=== PATIENT | female | born 1985 | race Caucasian/White ===

== ENCOUNTER → 2017-09-15 10:36 | Outpatient (CLI) | payer MEDICAID, SELFPAY ==
--- NOTE | 2017-09-15 | MM_ITS ---
MM Dig mamm DX unilat LT CAD, US breast RT complete, US breast LT complete INDICATION: Bilateral breast pain ORDERING PHYSICIAN: Liam Yanes MD PATIENT AGE: 31 years COMPARISON: None TECHNIQUE: Bilateral breast ultrasound and left mammogram FINDINGS: Patient was originally scheduled for bilateral breast ultrasound. On the left breast ultrasound there was an area of decreased echogenicity in the 2:00 region therefore, mammogram was also performed of the left breast. Right breast ultrasound: No discrete mass. No solid or cystic lesions. There are scattered heterogeneous fibroglandular tissue. Small nodes present in the axilla. Left breast ultrasound: There was a persistent area of decreased echogenicity in the 2:00 region of the left breast corresponding to a palpable area. This measured 1 x 0.5 cm. This did appear to elongate on sagittal images haven't somewhat similar echogenicity to the remaining breast and is felt to represent fibroglandular tissue. No other significant anomalies are evident. Small nodes present in the axilla 1.7 cm's. Left mammogram: Average fibroglandular tissue. No discrete mass or malignant appearing microcalcification. There is some asymmetric density in the retroareolar region felt to be due to fibroglandular tissue. No sonographic correlate IMPRESSION: No suspicious findings. Probable asymmetric fibroglandular tissue in the 2:00 region of the left breast and in the retroareolar area. BI-RADS Category: 3 Benign Finding Short Term Follow-up RECOMMENDED FOLLOW-UP: 6M - 6 MONTH FOLLOW-UP Suggest follow-up left mammogram and ultrasound in 6 months (A letter has been sent to the patient regarding results of the study.)
== END ==
PROVIDERS: Family Provider Family Medicine Geriatric Medicine; PCP Family Medicine Geriatric Medicine; Visit Provider Nurse Practitioner Obstetrics & Gynecology
DX: N64.4 Mastodynia (principal); N63.20 Unspecified lump in the left breast, unspecified quadrant; N63.10 Unspecified lump in the right breast, unspecified quadrant
CPT/HCPCS: 76641; 77065

== ENCOUNTER → 2018-02-20 14:36 | Outpatient (CLI) | payer MEDICAID, SELFPAY ==
--- NOTE | 2018-02-20 14:37 | US_ITS ---
US transvaginal Ordering Physician: Liam Yanes MD Patient Age: 32 years: Female HISTORY: ITS.REASON: US T/V- RUQP, Ovarian Cyst Right-sided pain. Getting worse... Recent CT abdomen revealed ovarian cyst.. TECHNIQUE: Transvaginal pelvic ultrasound. MW. COMPARISON :A CT abdomen/pelvis 12/20/2017 demonstrated a large right ovary measuring nearly 6 cm FINDINGS UTERUS.. Normal size it measures 8.7 cm in length as 3.6 cm x 5.2 cm The endometrium appears thickened measuring 6 mm. . IUD is in place it appears satisfactory ultrasound survey.. scar noted lower anterior body of uterus. On today's study the left ovary is larger than right more prominent cyst.. The large cyst seen on 12/20/2017 CT appearance of regressed at the right ovary. . RIGHT OVARY measures 3.1 x 1.6 x 1.9 cm and contains numerous smaller follicles most of them measuring less than 7-8 mm; but there is a larger dominant follicle on right measuring up to 1.6 x 1.4 cm. LEFT OVARY 3.8 x 2.2 x 2.65 cm.. Upper normal size. . The largest cyst at the left ovary measures 1.7 x 1.6 cm. A smaller cyst adjacent to this measuring up 1.5 cm. X1.6 cm ------IMPRESSION-------- Left ovary is larger than right on today's study Left ovary multiple follicles with the largest cyst measuring 1.7 cm and another 1.6. At the right ovary the large cyst seen on the CT study from 12/20/2017 appear to have regressed. On today's study the right ovary contains numerous follicles with the largest measuring up to 1.7 cm . No fluid in cul-de-sac. Uterus appears normal in size. With IUD in place, scar noted.
== END ==
PROVIDERS: PCP Family Medicine; Visit Provider Nurse Practitioner Obstetrics & Gynecology
DX: R10.11 Right upper quadrant pain (principal); N83.209 Unspecified ovarian cyst, unspecified side
CPT/HCPCS: 76830

== ENCOUNTER → 2018-04-05 13:36 | Outpatient (CLI) | payer MEDICAID, SELFPAY ==
--- NOTE | 2018-04-05 | US_ITS ---
MM Dig mamm DX unilat LT CAD, US breast LT complete INDICATION: 6 month follow-up palpable left breast nodule ORDERING PHYSICIAN: Rafael Evans PATIENT AGE: 32 years COMPARISON: None TECHNIQUE: Standard images performed along spot compression view and left breast ultrasound FINDINGS: Average fibroglandular tissue. No malignant appearing mass or malignant appearing microcalcification. Scattered areas of asymmetric density are present in this retroareolar region and superior aspect of the left breast not significant change and appear to compress out as fibroglandular tissue. Left breast ultrasound: An 8 x 5 mm isoechoic area noted once again at 2:00 near the nipple and may represent fibroglandular tissue which appears to elongate as before. This appear somewhat less apparent compared to the previous exam. No malignant appearing mass. No cyst evident. Small nodes are present in the axilla. IMPRESSION: No significant change with no evidence of malignancy. Slightly hypoechoic the nodular area 2:00 is unchanged BI-RADS Category: 2 Benign Finding(s) RECOMMENDED FOLLOW-UP: 6M - 6 MONTH FOLLOW-UP (A letter has been sent to the patient regarding results of the study.)
== END ==
PROVIDERS: PCP Family Medicine; Visit Provider Family Medicine
DX: R92.8 Other abnormal and inconclusive findings on diagnostic imaging of breast (principal)
CPT/HCPCS: 76641; 77065

== ENCOUNTER → 2019-01-01 13:04 | Outpatient (CLI) | payer MEDICAID, SELFPAY ==
--- NOTE | 2019-01-01 13:07 | US_ITS ---
PROCEDURE: MM DIG MAMM DX UNILAT LT CAD CLINICAL INDICATION: Dx Mammogram- 6 mo f/u abnormal mamm COMPARISON: DXLT MM Dig mamm DX unilat LT CAD from 09/15/2017 BREASTLT US breast LT complete from 04/05/2018 DXLT MM Dig mamm DX unilat LT CAD from 04/05/2018 US BREAST LT COMPLETE from 01/01/2019 TECHNIQUE: Standard CC and MLO images were obtained. R2 CAD reviewed. FINDINGS: Average fibroglandular tissue. No discrete mass or malignant-appearing microcalcification. A marker is placed to denote in area of palpable concern. No mammographic abnormality evident in this region within the upper outer left breast. There is some increase in glandular in the retroareolar region compared to the previous exams. Left breast ultrasound: No discrete mass or cyst evident. Oval area isoechoic area once again noted at 2 o'clock unchanged and felt to be due to fibroglandular tissue. IMPRESSION: No evidence of malignancy. No change in the isoechoic region in the 2 o'clock area of the left breast. There increase in glandular tissue noted in the retroareolar region but no mass evident in this area on the ultrasound. BI-RAD Category: 2 Benign Finding(s) FOLLOW-UP: As clinically indicated Any palpable nodule should be managed on clinical basis. Negative mammogram and negative ultrasound does not exclude the possibility of malignancy. (A letter has been sent to the patient regarding results of the study.) Dictated by: Romario Bell MD 01/08/2019 12:27 Electronically signed by Romario Bell MD in [place] 01/08/2019 12:27
== END ==
PROVIDERS: Visit Provider Nurse Practitioner Obstetrics & Gynecology
DX: R92.8 Other abnormal and inconclusive findings on diagnostic imaging of breast (principal)
CPT/HCPCS: 76641; 77065

== ENCOUNTER → 2020-11-06 16:11 | Outpatient (CLI) | payer MEDICAID, SELFPAY ==
[2020-11-06 19:34] LABS: HCG,Quantitative < 2 mIU/ml (0-5.42)
== END ==
PROVIDERS: Visit Provider Nurse Practitioner Obstetrics & Gynecology
DX: N92.6 Irregular menstruation, unspecified (principal)
CPT/HCPCS: 36415; 84702

== ENCOUNTER → 2021-09-23 11:01 | Outpatient (CLI) | payer MEDICAID, SELFPAY ==
--- NOTE | 2021-09-23 12:25 | US_ITS ---
FINAL REPORT CLINICAL HISTORY: dates FINDINGS: Sonographic images of the pelvis were obtained. A gestational sac is present within the uterus. A yolk sac is present and measures 0.25 cm. A pole is identified with a crown to rump length measures 0.36 cm which corresponds to 6 weeks 1 day gestation. Heartbeat is not identified. There is a 1.4 cm right ovarian cyst. The left ovary is within normal limits. IMPRESSION: No heartbeat is identified which may represent early , too early to visualize heartbeat versus failed . Recommend follow-up Reviewed, Interpreted and Dictated by Mannie Caban III, MD Transcribed by Asimta Faria Authenticated and . [facility]
[2021-09-23 13:30] LABS: Basophils # 0.1 K/mm3 (0-0.2); Basophils % 1.6 % (0.1-2.0); Eosinophils # 0.1 K/mm3 (0.0-0.4); Eosinophils % 1.1 % (0.1-12.0); Hemoglobin 14.2 g/dL (12.2-16.2); Lymphocytes # 1.3 K/mm3 (0.7-4.5); Lymphocytes % 21.8 % (10-50); Mean Corpuscular Hemoglobin 32.5 pg (27.0-31.2); Mean Corpuscular Volume 98.5 fl (81-99); Mean Platelet Volume 8.5 fl (7.4-10.4); Monocytes # 0.3 K/mm3 (0.1-1.0); Monocytes % 5.7 % (1.7-9.3); Neutrophils # 4.2 K/mm3 (1.8-7.8); Neutrophils % 69.7 % (37.0-80.0); Platelet Count 222 K/mm3 (142-424); Red Blood Count 4.36 M/mm3 (4.20-5.40); Red Cell Distribution Width 13.5 % (11.5-17.5)
[2021-09-23 14:07] LABS: HCG,Quantitative 1348 mIU/ml (0-5.42)
[2021-09-24 07:12] LABS: HIV Screen 4th Generation wRfx Non Reactive (Non Reactive); Hepatitis B Surface Antigen Negative (Negative); Hepatitis C Antibody <0.1 s/co ratio (0.0-0.9)
[2021-09-24 11:12] LABS: Rapid Plasma Reagin Ab Titer Non Reactive (NonRea<1:1)
== END ==
PROVIDERS: PCP Nurse Practitioner Family; Visit Provider Nurse Practitioner Obstetrics & Gynecology
DX: Z34.90 Encounter for supervision of normal pregnancy, unspecified, unspecified trimester (principal)
CPT/HCPCS: 36415; 76801; 84702; 85025; 86592; 86703; 86762; 86850; 87340; 87380; G0432

== ENCOUNTER → 2021-09-25 11:38 | Outpatient (CLI) | payer MEDICAID, SELFPAY ==
[2021-09-25 13:24] LABS: HCG,Quantitative 1086 mIU/ml (0-5.42)
== END ==
PROVIDERS: PCP Nurse Practitioner Family; Visit Provider Nurse Practitioner Obstetrics & Gynecology
DX: Z34.90 Encounter for supervision of normal pregnancy, unspecified, unspecified trimester (principal)
CPT/HCPCS: 36415; 84702

== ENCOUNTER → 2021-09-28 14:05 | Outpatient (CLI) | payer MEDICAID, SELFPAY ==
--- NOTE | 2021-09-28 14:06 | US_ITS ---
FINAL REPORT CLINICAL HISTORY: confirm if viable FINDINGS: PELVIC ULTRASOUND No gestational sac is identified. The uterus measures 8.1 x 4.5 x 3.3 cm. The endometrium measures 4 mm. The right ovary measures 2.6 x 2.2 x 1.8 cm. The left ovary measures 2.6 x 1.7 x 1.6 cm. Blood flow is identified to the ovaries. No free fluid is identified. IMPRESSION: No gestational sac identified. Findings may represent failed or less likely normal early . If indicated, follow-up ultrasound. Reviewed, Interpreted and Dictated by Mannie Caban III, MD Transcribed by Ryan Daniel Authenticated and [facility]
== END ==
PROVIDERS: PCP Nurse Practitioner Family; Visit Provider Nurse Practitioner Obstetrics & Gynecology
DX: Z34.90 Encounter for supervision of normal pregnancy, unspecified, unspecified trimester (principal)
CPT/HCPCS: 76801

== ENCOUNTER → 2022-05-13 13:34 | Outpatient (CLI) | payer MEDICAID, SELFPAY ==
[2022-05-13 15:52] LABS: HCG,Quantitative < 2 mIU/ml (0-5.42)
[2022-05-15 08:20] LABS: Progesterone 0.6 ng/mL (.)
== END ==
PROVIDERS: PCP Nurse Practitioner Family; Visit Provider Nurse Practitioner Obstetrics & Gynecology
DX: N92.6 Irregular menstruation, unspecified (principal); Z32.00 Encounter for pregnancy test, result unknown
CPT/HCPCS: 36415; 84144; 84702

== ENCOUNTER 2024-09-25 16:05 | Outpatient (CLI) | payer MEDICAID, SELFPAY ==
--- NOTE | 2024-09-25 16:00 | US_ITS ---
PROCEDURE: US TRANSVAGINAL CLINICAL INDICATION: Needs for IUD placement check/pelvic pain COMPARISON: No exams were available for comparison FINDINGS: Transvaginal sonographic images of the pelvis were obtained. UTERUS: 8.0cm x 4.8 cmx 3.8 cm anteverted with a combined endometrial thickness of 4.9mm. There is an IUD within the uterine cavity in the correct position. LEFT OVARY: 2.6 cmx1.3cmx1.3cm with a volume of 2.3ml. RIGHT OVARY: 0.8 cmx 1.4cmx1.6 cm with a volume of 3.2ml. Both ovaries are seen and appear normal. Doppler flow to both ovaries are seen. There is no fluid in the cul-de-sac. IMPRESSION: 1. Anteverted uterus normal in shape and size. The endometrium is thin measuring 4.9 mm. 2. There is an IUD within the uterine cavity in the correct position. 3. Both ovaries are seen and appear normal. 4. No fluid in the cul-de-sac. Dictated by: Liam Yanes MD 09/26/2024 01:34 Liam Yanes MD in [place] 09/26/2024 01:34
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
--- OUTSIDE RECORDS SUMMARY | 2024-09-25 16:08 | XMS_ITS | Data Portability ---
Author Organization [facility] ADMIN Address [address] [place] [address] Care Team Providers Care Automation Analyst Name Role Phone ANGELAGIULIANACatrachito RADHA Primary Care Provider Assessment Encounter Date Assessment Date Assessment LastModified by Organization Details LastModified Time 11/22/2023 11/22/2023 Additional Notes : Weigh-Ins Needed: 1/month until surgery or at least 3; will complete with KBI Recommendations: 1. Follow 2-4 hr rule for meal timing 2. 64 oz noncarbonated, noncaffeinated, sugar-free fluids/day 3. Continue physical activity to 4x/week 4. Begin using tracking nikolay to assess avg diet intake, track daily intake 4+ times/week A total of 22 minutes was spent with the pt today. RDN concludes that pt is a suitable candidate for sx at this time. Reservations include none at this time. Pt verbally agreed to recommendations and goals. Denied further questions/concerns . RDN will monitor weight loss, labs, and lifestyle modifications. Will f/up as scheduled or PRN. [email or web address] Not available 11/22/2023 16:45:38 Plan of Treatment Reminders Order Date Submit Date Provider Last Modified By Organization Details Last Modified Time Details Appointments None recorded. Lab influenza virus A + B + SARS-CoV-2 (COVID19) Ag panel, rapid IA, upper respiratory specimen [address] [facility], [address] [place], [address], 15:57:05 Referral None recorded. Procedures None recorded. Surgeries None recorded. Imaging None recorded. Medication Orders Qsymia 7.5 mg-46 mg capsule, extended release 2024 025 [facility], [address] [place] [address], [address], [place], [address], 13:14:25 Qsymia 3.75 mg-23 mg capsule, extended release 2024 025 [facility] #[id number], [address], [id number], 15:19:55 Qsymia 7.5 mg-46 mg capsule, extended release 2024 025 [facility] #[id number], [address] [place], [id number], 15:54:12 Paxlovid 300 mg (150 mg x 2)-100 mg tablets in a dose pack 2023 024 [facility] #[id number], [address], [id number], 15:43:35 Patient TargetsNo targets recorded. Patient InstructionsNo instructions recorded. Reason for Referral None Reported. Results Created Date Observation Date Name Description Value Unit Range Abnormal Flag Note LastModifiedBy Organization Detail LastModifiedTime 10/31/1910/31/2023 CBC AUTO W DIFF WBC 5.5 10 4.5-11 .5 Not Available [facility] (Lab Registration) [address] [place], [address], 10/31/2023 13:23:34 10/31/19 24 10/31/2023 CBC AUTO W DIFF RBC 4.25 10 4.25-5 .57 Not Available [facility] (Lab Registration) [address] [place], [address], 10/31/2023 13:23:34 10/31/19 24 10/31/2023 CBC AUTO W DIFF HGB 13.8 g/dL 12.0-1 5.7 Not Available [facility] (Lab Registration) [address] [place], [address], 10/31/2023 13:23:34 10/31/19 24 10/31/2023 CBC AUTO W DIFF HCT 39.7 % 36.0-4 7.0 Not Available [facility] (Lab Registration) [address] [place], [address], 10/31/2023 13:23:34 10/31/19 24 10/31/2023 CBC AUTO W DIFF MCV 93.4 fL 80-95 Not Available [facility] (Lab Registration) [address] [place], [address], 10/31/2023 13:23:34 10/31/19 24 10/31/2023 CBC AUTO W DIFF MCH 32.5 pg 27.0-3 4.0 Not Available [facility] (Lab Registration) [address] [place], [address], 10/31/2023 13:23:34 10/31/19 24 10/31/2023 CBC AUTO W DIFF MCHC 34.8 g/dL 32.0-3 6.0 Not Available [facility] (Lab Registration) [address] [place], [address], 10/31/2023 13:23:34 10/31/19 24 10/31/2023 CBC AUTO W DIFF platelet count 216 10 150-45 0 Not Available [facility] (Lab Registration) [address] [place], [address], 10/31/2023 13:23:34 10/31/19 24 10/31/2023 CBC AUTO W DIFF RDW 11.9 % 12.3-1 5.1 low Not Available [facility] (Lab Registration) [address] [place], [address], 10/31/2023 13:23:34 10/31/19 24 10/31/2023 CBC AUTO W DIFF MPV 10.8 fL 7.4-10 .4 high Not Available [facility] (Lab Registration) [address] [place], [address], 10/31/2023 13:23:34 10/31/19 24 10/31/2023 CBC AUTO W DIFF granulocyte% 53.1 % 40-75 Not Available [facility] (Lab Registration) [address] [place], [address], 10/31/2023 13:23:34 10/31/19 24 10/31/2023 CBC AUTO W DIFF lymphocyte% 36.5 % 15-57 Not Available [facility] (Lab Registration) [address] [place], [address], 10/31/2023 13:23:34 10/31/19 24 10/31/2023 CBC AUTO W DIFF monocyte% 8.6 % 4.0-12 .0 Not Available [facility] (Lab Registration) [address] [place], [address], 10/31/2023 13:23:34 10/31/19 24 10/31/2023 CBC AUTO W DIFF eosinophil% 0.7 % 0.0-4. 0 Not Available [facility] (Lab Registration) [address] [place], [address], 10/31/2023 13:23:34 10/31/19 24 10/31/2023 CBC AUTO W DIFF basophil% 1.1 % 0.0-1. 0 high Not Available [facility] (Lab Registration) [address] [place], [address], 10/31/2023 13:23:34 10/31/19 24 10/31/2023 CBC AUTO W DIFF immature granulocytes % 0.0 % 0.0-0. 8 Not Available [facility] (Lab Registration) [address] [place], [address], 10/31/2023 13:23:34 10/31/19 24 10/31/2023 CBC AUTO W DIFF granulocyte# 2.89 10 Not Available [facility] (Lab Registration) [address], [place], [address], 10/31/2023 13:23:34 10/31/19 24 10/31/2023 CBC AUTO W DIFF lymphocyte# 1.99 10 Not Available [facility] (Lab Registration) [address] [place], [address], 10/31/2023 13:23:34 10/31/19 24 10/31/2023 CBC AUTO W DIFF monocyte# 0.47 10 Not Available [facility] (Lab Registration) [address] [place], [address], 10/31/2023 13:23:34 10/31/19 24 10/31/2023 CBC AUTO W DIFF eosinophil# 0.04 10 Not Available [facility] (Lab Registration) [address] [place], [address], 10/31/2023 13:23:34 10/31/19 24 10/31/2023 CBC AUTO W DIFF basophil# 0.06 10 Not Available [facility] (Lab Registration) [address] [place], [address], 10/31/2023 13:23:34 10/31/19 24 10/31/2023 CBC AUTO W DIFF immature granulocytes # 0.00 10 Not Available [facility] (Lab Registration) [address] [place], [address], 10/31/2023 13:23:34 10/31/19 24 10/31/2023 CBC AUTO W DIFF manual differential NO Not Available [facility] (Lab Registration) [address] [place], [address], 10/31/2023 13:23:34 10/31/19 24 10/31/2023 CBC AUTO W DIFF note Unles s other ca noted testi ng perfo rmed at: [facility] [address] [place] [address] [phone] Esdras sewell MD CLIA: [id number] Not Available [facility] (Lab Registration) [address] [place], [address], 10/31/2023 13:23:34 10/31/19 24 10/31/2023 HEMOG LOBIN A1C glycosylated hemoglobin A1C 5.3 % 4.5-6. 2 Not Available [facility] (Lab Registration) [address] [place], [address], 10/31/2023 13:31:14 10/31/19 24 10/31/2023 HEMOG LOBIN A1C estimated average glucose 105 mg/dL 82-131 Not Available [facility] (Lab Registration) [address] [place], [address], 10/31/2023 13:31:14 10/31/19 24 10/31/2023 HEMOG LOBIN A1C note Unles s other ca noted testi ng perfo rmed at: [facility] [address] [place] [address] [phone] Esdras sewell MD CLIA: [id number] Not Available [facility] (Lab Registration) [address] [place], [address], 10/31/2023 13:31:14 10/31/19 24 10/31/2023 IRON/ TIBC/ %SAT (IRON STUDI ES) iron 96 ug/dL 35-150 Not Available [facility] (Lab Registration) [address] [place], [address], 10/31/2023 13:44:44 10/31/19 24 10/31/2023 IRON/ TIBC/ %SAT (IRON STUDI ES) total iron bind cap (TIBC) 299 ug/dL 250-45 0 Not Available [facility] (Lab Registration) [address] [place], [address], 10/31/2023 13:44:44 10/31/19 24 10/31/2023 IRON/ TIBC/ %SAT (IRON STUDI ES) % saturation 32 % 15-55 Not Available [facility] (Lab Registration) [address], [place], [address], 10/31/2023 13:44:44 10/31/19 24 10/31/2023 IRON/ TIBC/ %SAT (IRON STUDI ES) note Unles s other ca noted testi ng perfo rmed at: [facility] [address] [place] [phone] Esdras sewell MD CLIA: [id number] Not Available [facility] (Lab Registration) [address] [place], [address], 10/31/2023 13:44:44 10/31/19 24 10/31/2023 THYRO ID STIMU LATIN G HORMO NE thyroid stimulating hormone 1.84 mIU/m L 0.34-4 .80 Not Available [facility] (Lab Registration) [address] [place], [address], 10/31/2023 14:15:00 10/31/19 24 10/31/2023 THYRO ID STIMU LATIN G HORMO NE note Cecilio sewell other ca noted testi ng perfo rmed at: [facility] [address] [place] [phone] Esdras sewell MD CLIA: [id number] Not Available [facility] (Lab Registration) [address] [place], [address], 10/31/2023 14:15:00 10/31/19 24 10/31/2023 VITAM IN D TOTAL (D2+D 3) vitamin D25 (D2+D3) 43.5 NG/mL 30-100 Not Available [facility] (Lab Registration) [address] [place], [address], 10/31/2023 14:15:03 10/31/19 24 10/31/2023 VITAM IN D TOTAL (D2+D 3) note Unles s other ca noted testi ng perfo rmed at: [facility] [address] [place] [address] [phone] Esdras sewell MD CLIA: [id number] Not Available [facility] (Lab Registration) [address] [place], [address], 10/31/2023 14:15:03 10/31/19 24 10/31/2023 VITAM IN B12 vitamin B12 614 pg/mL 193-98 6 Not Available [facility] (Lab Registration) [address] [place], [address], 10/31/2023 14:15:04 10/31/19 24 10/31/2023 VITAM IN B12 folate (folic acid), serum 19.2 NG/mL 8.6-58 .9 Not Available [facility] (Lab Registration) [address] [place], [address], 10/31/2023 14:15:04 10/31/19 24 10/31/2023 VITAM IN B12 note Unles s other ca noted testi ng perfo rmed at: [facility] [address] [place] [address] [phone] Esdras sewell MD CLIA: [id number] Not Available [facility] (Lab Registration) [address] [place], [address], 10/31/2023 14:15:04 10/31/19 24 10/31/2023 COMP METAB OLIC PANEL sodium 141 mmol/ L 136-14 5 Not Available [facility] (Lab Registration) [address] [place], [address], 10/31/2023 14:15:04 10/31/19 24 10/31/2023 COMP METAB OLIC PANEL potassium 3.9 mmol/ L 3.5-5. 1 Not Available [facility] (Lab Registration) [address] [place], [address], 10/31/2023 14:15:04 10/31/19 24 10/31/2023 COMP METAB OLIC PANEL chloride 104 mmol/ L 98-107 Not Available [facility] (Lab Registration) [address] [place], [address], 10/31/2023 14:15:04 10/31/19 24 10/31/2023 COMP METAB OLIC PANEL carbon dioxide 28 mmol/ L 21-32 Not Available [facility] (Lab Registration) [address] [place], [address], 10/31/2023 14:15:04 10/31/19 24 10/31/2023 COMP METAB OLIC PANEL anion gap 9.0 Not Available [facility] (Lab Registration) [address] [place], [address], 10/31/2023 14:15:04 10/31/19 24 10/31/2023 COMP METAB OLIC PANEL glucose 95 mg/dL 70-110 Not Available [facility] (Lab Registration) [address] [place], [address], 10/31/2023 14:15:04 10/31/19 24 10/31/2023 COMP METAB OLIC PANEL blood urea nitrogen 10 mg/dL 7-18 Not Available [facility] (Lab Registration) [address] [place], [address], 10/31/2023 14:15:04 10/31/19 24 10/31/2023 COMP METAB OLIC PANEL creatinine 0.7 mg/dL 0.6-1. 0 Not Available [facility] (Lab Registration) [address] [place], [address], 10/31/2023 14:15:04 10/31/19 24 10/31/2023 COMP METAB OLIC PANEL BUN/creatini ne ratio 14.3 ratio 9-21 Not Available [facility] (Lab Registration) [address] [place], [address], 10/31/2023 14:15:04 10/31/19 24 10/31/2023 COMP METAB OLIC PANEL estimated glom filtration rate 112 mL/mi n >60- Not Available [facility] (Lab Registration) [address] [place], [address], 10/31/2023 14:15:04 10/31/19 24 10/31/2023 COMP METAB OLIC PANEL total protein 7.0 g/dL 6.4-8. 2 Not Available [facility] (Lab Registration) [address] [place], [address], 10/31/2023 14:15:04 10/31/19 24 10/31/2023 COMP METAB OLIC PANEL albumin 4.1 g/dL 3.4-5. 0 Not Available [facility] (Lab Registration) [address] [place], [address], 10/31/2023 14:15:04 10/31/19 24 10/31/2023 COMP METAB OLIC PANEL calcium 9.7 mg/dL 8.5-10 .1 Not Available [facility] (Lab Registration) [address] [place], [address], 10/31/2023 14:15:04 10/31/19 24 10/31/2023 COMP METAB OLIC PANEL corrected calcium 9.6 mg/dL 8.5-10 .1 Not Available [facility] (Lab Registration) [address] [place], [address], 10/31/2023 14:15:04 10/31/19 24 10/31/2023 COMP METAB OLIC PANEL bilirubin total 0.9 mg/dL 0.4-1. 5 Not Available [facility] (Lab Registration) [address] [place], [address], 10/31/2023 14:15:04 10/31/19 24 10/31/2023 COMP METAB OLIC PANEL AST (SGOT) 18 U/L 15-37 Not Available [facility] (Lab Registration) [address] [place], [address], 10/31/2023 14:15:04 10/31/19 24 10/31/2023 COMP METAB OLIC PANEL ALT (SGPT) 25 U/L 12-78 Not Available [facility] (Lab Registration) [address] [place], [address], 10/31/2023 14:15:04 10/31/19 24 10/31/2023 COMP METAB OLIC PANEL alk phosphatase 83 U/L 50-120 Not Available [facility] (Lab Registration) [address] [place], [address], 10/31/2023 14:15:04 10/31/19 24 10/31/2023 COMP METAB OLIC PANEL note Unles s other ca noted testi ng perfo rmed at: [facility] [address] [place] [address] [phone] Esdras sewell MD CLIA: [id number] Not Available [facility] (Lab Registration) [address] [place], [address], 10/31/2023 14:15:04 10/31/19 24 10/31/2023 LIPID PANEL triglyceride 31 mg/dL 20-200 The Natio nal [employer] ([employer] ) has set the follo wing guide lines for Fasti ng Trigl yceri adriel: THOMAS L: <150 mg/dL BORDE RLINE HIGH: 150 - 199 mg/dL HIGH: 200 - 499 mg/dL VERY HIGH: > or =500 mg/dL Not Available [facility] (Lab Registration) [address] [place], [address], 10/31/2023 14:15:06 10/31/19 24 10/31/2023 LIPID PANEL cholesterol 199 mg/dL 0-200 The Natio nal [employer] am ([facility] ) has set the follo wing guide lines for Fasti ng Kavya stero l: LALA ABLE: <200 mg/dL BORDE RLINE HIGH: 200 - 239 mg/dL HIGH: > or =240 mg/dL Not Available [facility] (Lab Registration) [address] [place], [address], 10/31/2023 14:15:06 10/31/19 24 10/31/2023 LIPID PANEL HDL cholesterol 69 mg/dL 60- The Natio nal [employer] ([facility] ) has set the follo wing guide lines for Fasti ng HDL Kavya stero l: LOW HDL: <40 mg/dL THOMAS L: 40 - 60 mg/dL LALA ABLE: >60 mg/dL Not Available [facility] (Lab Registration) [address] [place], [address], 10/31/2023 14:15:06 10/31/19 24 10/31/2023 LIPID PANEL LDL calculated 124 mg/dL 100- The Natio nal [employer] ([facility] ) has set the follo wing guide lines for Fasti ng LDL K[employer]ya stero l: OPTIM AL: < 100 mg/dL LOW RISK: 100 - 129 mg/dL BORDE RLINE HIGH: 130 - 159 mg/dL HIGH: 160 - 189 mg/dL VERY HIGH: > or = 190 mg/dL Not Available [facility] (Lab Registration) [address] [place], [address], 10/31/2023 14:15:06 10/31/19 24 10/31/2023 LIPID PANEL chol/HDL ratio 3 ratio -5 Not Available [facility] (Lab Registration) [address] [place], [address], 10/31/2023 14:15:06 10/31/19 24 10/31/2023 LIPID PANEL note Unles s other ca noted testi ng perfo rmed at: [facility] [address] [place] [address] [phone] Esdras sewell MD CLIA: [id number] Not Available [facility] (Lab Registration) [address] [place], [address], 10/31/2023 14:15:06 10/31/19 24 10/31/2023 VLADISLAV TIN ferritin 38 NG/mL 8-388 Not Available [facility] (Lab Registration) [address] [place], [address], 10/31/2023 14:15:08 10/31/19 24 10/31/2023 VLADISLAV TIN note Cecilio nicholas ca noted testi ng perfo rmed at: [facility] [address] [place] [address] [phone] Esdras sewell MD CLIA: [id number] Not Available [facility] (Lab Registration) [address] [place], [address], 10/31/2023 14:15:08 10/31/19 24 10/31/2023 urina lysis , dipst ick Leukocytes (reference range) negati ve Not Available [address] [place], [address], 10/31/2023 12:13:57 10/31/19 24 10/31/2023 urina lysis , dipst ick Nitrite (reference range:) negati ve Not Available [address] [place], [address], 10/31/2023 12:13:57 10/31/19 24 10/31/2023 urina lysis , dipst ick Urobilinogen (reference range) 0.2 Not Available [address] [place], [address], 10/31/2023 12:13:57 10/31/19 24 10/31/2023 urina lysis , dipst ick Protein (reference range) negati ve Not Available [address] [place], [address], 10/31/2023 12:13:57 10/31/19 24 10/31/2023 urina lysis , dipst ick pH (reference range 5-8.5) 7.0 Not Available [address] [place], [address], 10/31/2023 12:13:57 10/31/19 24 10/31/2023 urina lysis , dipst ick Blood (reference range:) negati ve Not Available [address] [place], [address], 10/31/2023 12:13:57 10/31/19 24 10/31/2023 urina lysis , dipst ick Specific [place] (reference range) 1.020 Not Available [address] [place], [address], 10/31/2023 12:13:57 10/31/19 24 10/31/2023 urina lysis , dipst ick Ketone (reference range) negati ve Not Available [address] [place], [address], 10/31/2023 12:13:57 10/31/19 24 10/31/2023 urina lysis , dipst ick Bilirubin (reference range) negati ve Not Available [address] [place], [address], 10/31/2023 12:13:57 10/31/19 24 10/31/2023 urina lysis , dipst ick Glucose (reference range) negati ve Not Available [address] [place], [address], 10/31/2023 12:13:57 10/31/19 24 10/31/2023 urina lysis , dipst ick Color (reference range: yellow-brown ) Yellow Not Available [facility] [address] [place], [address], 10/31/2023 12:13:57 11/22/19 24 11/23/2023 FE+TI BC+FE R iron bind.cap.(TI BC) 298 ug/dL 250-45 0 normal Not Available [facility] ([facility]) [address] [place], [address], 11/28/2023 14:36:38 11/22/19 24 11/23/2023 FE+TI BC+FE R UIBC 196 ug/dL 131-42 5 normal Not Available [facility] ([facility]) [address] [place], [address], 11/28/2023 14:36:38 11/22/19 24 11/23/2023 FE+TI BC+FE R iron 102 ug/dL 27-159 normal Not Available [facility] ([facility]) [address] [facility], [place], [address], 11/28/2023 14:36:38 11/22/19 24 11/23/2023 FE+TI BC+FE R iron saturation 34 % 15-55 normal Not Available [facility] ([facility]) [address] [place], [address], 11/28/2023 14:36:38 11/22/19 24 11/23/2023 FE+TI BC+FE R ferritin 76 NG/mL 15-150 normal Not Available [facility] ([facility]) [address] [place], [address], 11/28/2023 14:36:38 11/22/19 24 11/23/2023 TSH+F REE T4 TSH 0.886 uIU/m L 0.450- 4.500 normal Not Available [facility] ([facility]) [address] [place], [address], 11/28/2023 14:36:39 11/22/19 24 11/23/2023 TSH+F REE T4 T4,free(dire ct) 1.31 NG/dL 0.82-1 .77 normal Not Available [facility] ([facility]) [address] [place], [address], 11/28/2023 14:36:39 11/22/19 24 11/23/2023 CBC WITH DIFFE RENTI AL/PL ATELE T WBC 5.7 x10e3 /uL 3.4-10 .8 normal Not Available [facility] ([facility]) [address] [place], [address], 11/28/2023 14:36:40 11/22/19 24 11/23/2023 CBC WITH DIFFE RENTI AL/PL ATELE T RBC 4.36 x10e6 /uL 3.77-5 .28 normal Not Available [facility] ([facility]) [address] [place], [address], 11/28/2023 14:36:40 11/22/19 24 11/23/2023 CBC WITH DIFFE RENTI AL/PL ATELE T hemoglobin 14.3 g/dL 11.1-1 5.9 normal Not Available [facility] ([facility]) [address] [place], [address], 11/28/2023 14:36:40 11/22/19 24 11/23/2023 CBC WITH DIFFE RENTI AL/PL ATELE T hematocrit 43.1 % 34.0-4 6.6 normal Not Available [facility] ([facility]) [address] [place], [address], 11/28/2023 14:36:40 11/22/19 24 11/23/2023 CBC WITH DIFFE RENTI AL/PL ATELE T MCV 99 fL 79-97 above high normal Not Available [facility] ([facility]) [address] [place], [address], 11/28/2023 14:36:40 11/22/19 24 11/23/2023 CBC WITH DIFFE RENTI AL/PL ATELE T MCH 32.8 pg 26.6-3 3.0 normal Not Available [facility] ([facility]) [address] [place], [address], 11/28/2023 14:36:40 11/22/19 24 11/23/2023 CBC WITH DIFFE RENTI AL/PL ATELE T MCHC 33.2 g/dL 31.5-3 5.7 normal Not Available [facility] ([facility]) [address] [place], [address], 11/28/2023 14:36:40 11/22/19 24 11/23/2023 CBC WITH DIFFE RENTI AL/PL ATELE T RDW 11.5 % 11.7-1 5.4 below low normal Not Available [facility] ([facility]) [address] [place], [address], 11/28/2023 14:36:40 11/22/19 24 11/23/2023 CBC WITH DIFFE RENTI AL/PL ATELE T platelets 218 x10e3 /uL 150-45 0 normal Not Available [facility] ([facility]) [address] [place], [address], 11/28/2023 14:36:40 11/22/19 24 11/23/2023 CBC WITH DIFFE RENTI AL/PL ATELE T neutrophils 59 % not estab. normal Not Available [facility] ([facility]) [address] [place], [address], 11/28/2023 14:36:40 11/22/19 24 11/23/2023 CBC WITH DIFFE RENTI AL/PL ATELE T lymphs 31 % not estab. normal Not Available [facility] ([facility]) [address] [facility], [place], [address], 11/28/2023 14:36:40 11/22/19 24 11/23/2023 CBC WITH DIFFE RENTI AL/PL ATELE T monocytes 8 % not estab. normal Not Available [facility] ([facility]) [address] [facility], [place], [address], 11/28/2023 14:36:40 11/22/19 24 11/23/2023 CBC WITH DIFFE RENTI AL/PL ATELE T eos 1 % not estab. normal Not Available [facility] ([facility]) [address] [facility], [place], [address], 11/28/2023 14:36:40 11/22/19 24 11/23/2023 CBC WITH DIFFE RENTI AL/PL ATELE T basos 1 % not estab. normal Not Available [facility] ([facility]) [address] [place], [address], 11/28/2023 14:36:40 11/22/19 24 11/23/2023 CBC WITH DIFFE RENTI AL/PL ATELE T immature cells HYDRAULIC MINER BLASTING Not Available [facility] ([facility]) [address] [place], [address], 11/28/2023 14:36:40 11/22/19 24 11/23/2023 CBC WITH DIFFE RENTI AL/PL ATELE T neutrophils (absolute) 3.3 x10e3 /uL 1.4-7. 0 normal Not Available [facility] ([facility]) [address] [place], [address], 11/28/2023 14:36:40 11/22/19 24 11/23/2023 CBC WITH DIFFE RENTI AL/PL ATELE T lymphs (absolute) 1.8 x10e3 /uL 0.7-3. 1 normal Not Available [facility] ([facility]) [address] [facility], [place], [address], 11/28/2023 14:36:40 11/22/19 24 11/23/2023 CBC WITH DIFFE RENTI AL/PL ATELE T monocytes(ab solute) 0.5 x10e3 /uL 0.1-0. 9 normal Not Available [facility] ([facility]) [address] [facility], [place], [address], 11/28/2023 14:36:40 11/22/19 24 11/23/2023 CBC WITH DIFFE RENTI AL/PL ATELE T eos (absolute) 0.0 x10e3 /uL 0.0-0. 4 normal Not Available [facility] ([facility]) [address] [facility], [place], [address], 11/28/2023 14:36:40 11/22/19 24 11/23/2023 CBC WITH DIFFE RENTI AL/PL ATELE T baso (absolute) 0.1 x10e3 /uL 0.0-0. 2 normal Not Available [facility] ([facility]) [address] [facility], [place], [address], 11/28/2023 14:36:40 11/22/19 24 11/23/2023 CBC WITH DIFFE RENTI AL/PL ATELE T immature granulocytes 0 % not estab. Not Available [facility] ([facility]) [address] [place], [address], 11/28/2023 14:36:40 11/22/19 24 11/23/2023 CBC WITH DIFFE RENTI AL/PL ATELE T immature grans (abs) 0.0 x10e3 /uL 0.0-0. 1 Not Available [facility] ([facility]) [address] [facility], [place], [address], 11/28/2023 14:36:40 11/22/19 24 11/23/2023 CBC WITH DIFFE RENTI AL/PL ATELE T NRBC HYDRAULIC MINER BLASTING Not Available [facility] ([facility]) [address] [facility], [place], [address], 11/28/2023 14:36:40 11/22/19 24 11/23/2023 CBC WITH DIFFE RENTI AL/PL ATELE T hematology comments: HYDRAULIC MINER BLASTING Not Available [facility] ([facility]) [address] [facility], [place], [address], 11/28/2023 14:36:40 11/22/19 24 11/23/2023 COMP. METAB OLIC PANEL (14) glucose 82 mg/dL 70-99 normal Not Available [facility] ([facility]) [address] [facility], [place], [address], 11/28/2023 14:36:41 11/22/19 24 11/23/2023 COMP. METAB OLIC PANEL (14) BUN 16 mg/dL 6-24 normal Not Available [facility] ([facility]) [address] [facility], [place], [address], 11/28/2023 14:36:41 11/22/19 24 11/23/2023 COMP. METAB OLIC PANEL (14) creatinine 0.79 mg/dL 0.57-1 .00 normal Not Available [facility] ([facility]) [address] [place], [address], 11/28/2023 14:36:41 11/22/19 24 11/23/2023 COMP. METAB OLIC PANEL (14) eGFR 97 mL/mi n/1.7 3 >59 normal Not Available [facility] ([facility]) [address] [place], [address], 11/28/2023 14:36:41 11/22/19 24 11/23/2023 COMP. METAB OLIC PANEL (14) BUN/creatini ne ratio 20 9-23 normal Not Available [facility] ([facility]) [address] [facility], [address], 11/28/2023 14:36:41 11/22/19 24 11/23/2023 COMP. METAB OLIC PANEL (14) sodium 140 mmol/ L 134-14 4 normal Not Available [facility] ([facility]) [address] [facility] [place], [address], 11/28/2023 14:36:41 11/22/19 24 11/23/2023 COMP. METAB OLIC PANEL (14) potassium 4.1 mmol/ L 3.5-5. 2 normal Not Available [facility] ([facility]) [address] [facility] [place], [address], 11/28/2023 14:36:41 11/22/19 24 11/23/2023 COMP. METAB OLIC PANEL (14) chloride 103 mmol/ L 96-106 normal Not Available [facility] ([facility]) [address] [facility] [place], [address], 11/28/2023 14:36:41 11/22/19 24 11/23/2023 COMP. METAB OLIC PANEL (14) carbon dioxide, total 24 mmol/ L 20-29 normal Not Available [facility] ([facility]) [address] [facility] [place], [address], 11/28/2023 14:36:41 11/22/19 24 11/23/2023 COMP. METAB OLIC PANEL (14) calcium 9.7 mg/dL 8.7-10 .2 normal Not Available [facility] ([facility]) [address] [facility] [place], [address], 11/28/2023 14:36:41 11/22/19 24 11/23/2023 COMP. METAB OLIC PANEL (14) protein, total 6.8 g/dL 6.0-8. 5 normal Not Available [facility] ([facility]) [address] [facility] [place], [address], 11/28/2023 14:36:41 11/22/19 24 11/23/2023 COMP. METAB OLIC PANEL (14) albumin 4.6 g/dL 3.9-4. 9 normal Not Available [facility] ([facility]) [address] [facility], [place], [address], 11/28/2023 14:36:41 11/22/19 24 11/23/2023 COMP. METAB OLIC PANEL (14) globulin, total 2.2 g/dL 1.5-4. 5 Not Available [facility] ([facility]) [address] [facility] [place], [address], 11/28/2023 14:36:41 11/22/19 24 11/23/2023 COMP. METAB OLIC PANEL (14) bilirubin, total 0.9 mg/dL 0.0-1. 2 normal Not Available [facility] ([facility]) [address] [facility], [place], [address], 11/28/2023 14:36:41 11/22/19 24 11/23/2023 COMP. METAB OLIC PANEL (14) alkaline phosphatase 78 IU/L 44-121 normal Not Available [facility] ([facility]) [address] [facility], [place], [address], 11/28/2023 14:36:41 11/22/19 24 11/23/2023 COMP. METAB OLIC PANEL (14) AST (SGOT) 22 IU/L 0-40 normal Not Available [facility] ([facility]) [address] [facility], [place], [address], 11/28/2023 14:36:41 11/22/19 24 11/23/2023 COMP. METAB OLIC PANEL (14) ALT (SGPT) 14 IU/L 0-32 normal Not Available [facility] ([facility]) [address] [facility], [place], [address], 11/28/2023 14:36:41 11/22/19 24 11/23/2023 LIPID PANEL cholesterol, total 182 mg/dL 100-19 9 normal Not Available [facility] ([facility]) [address] [place], [address], 11/28/2023 14:36:41 11/22/19 24 11/23/2023 LIPID PANEL triglyceride s 42 mg/dL 0-149 normal Not Available [facility] ([facility]) [address] [place], [address], 11/28/2023 14:36:41 11/22/19 24 11/23/2023 LIPID PANEL HDL cholesterol 55 mg/dL >39 normal Not Available [facility] ([facility]) [address] [place], [address], 11/28/2023 14:36:41 11/22/19 24 11/23/2023 LIPID PANEL VLDL cholesterol abida 8 mg/dL 5-40 Not Available [facility] ([facility]) [address] [place], [address], 11/28/2023 14:36:41 11/22/19 24 11/23/2023 LIPID PANEL LDL chol calc ([facility]) 119 mg/dL 0-99 above high normal Not Available [facility] ([facility]) [address] [place], [address], 11/28/2023 14:36:41 11/22/19 24 11/23/2023 LIPID PANEL LDL calc comment: HYDRAULIC MINER BLASTING Not Available [facility] ([facility]) [address] [place], [address], 11/28/2023 14:36:41 11/22/19 24 11/28/2023 VITAM IN E vitamin E(alpha tocopherol) 11.0 mg/L 7.0-25 .1 Not Available [facility] ([facility]) [address] [place], [address], 11/28/2023 14:36:42 11/22/19 24 11/28/2023 VITAM IN E vitamin E(gamma tocopherol) 1.0 mg/L 0.5-5. 5 Refer ence inter vals for alpha and gamma -toco phero l deter mined from [facility]ion Exami natio n Surve y, 2004- 2005. Indiv idual s with alpha -toco phero l level s less than 5.0 mg/L are consi dered vitam in E defic ient. Not Available [facility] ([facility]) [address] [facility], [place], [address], 11/28/2023 14:36:42 11/22/1911/23/2023 HEMOG LOBIN A1C hemoglobin A1C 5.5 % 4.8-5. 6 normal Predi abete s: 5.7 - 6.4 Diabe yousuf: >6.4 Glyce phil contr ol for adult s with diabe yousuf: <7.0 Not Available [facility] ([facility]) [address] [facility], [place], [address], 11/28/2023 14:36:43 11/22/1911/23/2023 FOLAT E (FOLI C ACID) , SERUM folate (folic acid), serum 13.7 NG/mL >3.0 normal A serum folat e lavon ntrat ion of less than 3.1 ng/mL is consi dered to repre sent clini abida defic iency . Not Available [facility] ([facility]) [address] [facility], [place], [address], 11/28/2023 14:36:43 11/22/1911/28/2023 VITAM IN A, SERUM vitamin A 53.6 ug/dL 20.1-6 2.0 Refer ence inter vals for vitam in A deter mined from [facility] inter nal studi es. Indiv idual s with vitam in A less than 20 ug/dL are consi dered vitam in A defic ient and those with serum lavon ntrat ions less than 10 ug/dL are consi dered sever amari defic ient. This test was devel dianaed and its perfo rmanc e arlene cteri stics deter mined by [facility]. It has not been clear ed or appro lorne by the Food and Drug Admin istra tion. Not Available [facility] ([facility]) [address] [facility], [place], [address], 11/28/2023 14:36:44 11/22/19 24 11/23/2023 VITAM IN D, 25-HY DROXY vitamin D, 25-hydroxy 29.8 NG/mL 30.0-1 00.0 below low normal Vitam in D defic iency has been defin ed by the Insti tute of Medic ine and an Endoc rine Socie ty pract ice guide line as a level of serum 25-OH vitam in D less than 20 ng/mL (1,2) . The Endoc rine Socie ty went on to furth er defin e vitam in D insuf ficie ncy as a level betwe en 21 and 29 ng/mL (2). 1. IOM (Inst itute of Medic ine). 2009. Dieta ry refer ence karolina es for calci um and D. Astrid flynn [place]: [facility] . 2. Martita whyte MF, Aspen scanlon [place], Sirisha off-F erredna i BANSAL, et al. Evalu ation , treat ment, and preve ntion of vitam in D defic iency : an Endoc rine Socie ty clini abida pract ice guide line. JCEM. 2010; 96(7) :1911 -30. Not Available [facility] ([facility]) [address] [facility], [place], [address], 11/28/2023 14:36:45 11/22/19 24 11/24/2023 VITAM IN B1 (THIA MINE) , BLOOD vit. B1, whole blood 139.1 nmol/ L 66.5-2 00.0 Not Available [facility] ([facility]) [address] [facility], [place], [address], 11/28/2023 14:36:46 11/22/19 24 11/28/2023 METHY LMALO CAMERON ACID, SERUM methylmaloni c acid, serum 110 nmol/ L 0-378 Not Available [facility] ([facility]) [address] [facility], [place], [address], 11/28/2023 14:36:46 11/22/19 24 11/23/2023 PTH, INTAC T PTH, intact 52 pg/mL 15-65 normal Not Available [facility] ([facility]) [address] [facility], [place], [address], 11/28/2023 14:36:47 12/14/19 24 12/14/2023 influ diann virus A + B + SARS- CoV-2 (COVI D19) Ag panel , rapid IA, upper respi rator y speci men FLU A negati ve Not Available [address] [place], [address], 12/14/2023 15:24:10 12/14/19 24 12/14/2023 influ diann virus A + B + SARS- CoV-2 (COVI D19) Ag panel , rapid IA, upper respi rator y speci men FLU B negati ve Not Available [address] [place], [address], 12/14/2023 15:24:10 12/14/19 24 12/14/2023 influ diann virus A + B + SARS- CoV-2 (COVI D19) Ag panel , rapid IA, upper respi rator y speci men SARS COV + SARS OV 2 positi ve Not Available [address] [place], [address], 12/14/2023 15:24:10 Result Notes None recorded. Problems Name Problem SNOMED Code Status Onset Date Resolution Date Notes Provider Name and Address Organization Details Recorded Time Body mass index 30+ - obesity 493264972 Active 2022 CYN Castro - [facility] - [place] & [place] 4 12:11:57 Anxiety 03788221 Active 2023 Josemanuel Centenoso n null, CYN - [facility] - [place] [facility] [place] 4 12:11:55 Depressive disorder 80631078 Active 2023 Josemanuelsherin Centenoso n null, [place] - [facility] - [place] [facility] [place] 4 12:11:58 Fibromyalgia 139699162 Active 2023 Josemanuel Centenoso n null, [place] - [facility] - [place] [facility] [place] 4 12:11:59 Obstructive sleep apnea syndrome 56448210 Active 2023 Matty Cutler null, CYN - [facility] - [place] [facility] [place] 4 15:58:16 Disorder of function of stomach 692664972 Active 2023 Matty Cutler null, [place] - [facility] - [place] [facility] [place] 4 15:58:12 Obesity 991089216 Active 2023 Matty Cutler null, CYN - [facility] - [place] [facility] [place] 4 15:58:14 Problem Notes None recorded. Procedures Surgical History Date Name Laterality Status Provider Name and Address Organization Details Recorded Time 4 Tonsillectomy/ Adenoidectomy completed Narendra Moreno DNP, APRN, [employer]DRA[employer] [facility] [address] , [place], [address], [place] - [facility] & [place] 11/22/2023 13:19:29 section completed Narendra Moreno DNP, APRN, HYDRA[employer]IC [employer] [facility] [address] , [place], [address], [place] - [facility] - [place] [facility] [place] 11/22/2023 13:18:51 procedure on femur completed Narendra Moreno DNP, APRN, [employer]DRA[employer] [address] , [place], [address], [place] - [facility] - [place] [facility] [place] 11/22/2023 13:19:14 procedure on upper arm completed Narendra Moreno DNP, APRN, HYDRAULIC [facility] [address], [place], [address], [facility] - [facility] - [place] [facility] [place] 11/22/2023 13:19:20 Imaging Results None recorded. Procedure Notes None recorded. Medical Equipment None Reported. Allergies No known drug allergies Medications Name Sig Start Date Stop Date Status Note LastModified by Organization Details LastModified Time bupropion HCl SR 150 mg tablet,12 hr sustained-r elease TAKE 1 TABLET BY MOUTH TWICE DAILY active Not Available Not Available No t Available promethazin e-DM 6.25 mg-15 mg/5 mL oral syrup TAKE 5 ML BY MOUTH EVERY 6 HOURS FOR 5 DAYS 12/09 completed Not Available Not Available Not Available cetirizine 10 mg tablet TAKE 1 TABLET BY MOUTH EVERY DAY FOR 30 DAYS 12/09 completed Not Available Not Available Not Available azithromyci n 250 mg tablet TAKE 2 TABLETS (500 MG) BY ORAL ROUTE ONCE DAILY FOR 1 DAY THEN 1 TABLET (250 MG) BY ORAL ROUTE ONCE DAILY FOR 4 DAYS 10/30 completed Not Available Not Available Not Available topiramate 25 mg tablet TAKE 1 TABLET BY MOUTH EVERY DAY IN THE EVENING 11/21 completed Not Available Not Available Not Available metronidazo le 500 mg tablet TAKE 1 TABLET BY MOUTH TWICE DAILY 04/07 completed Not Available Not Available Not Available phentermine 37.5 mg tablet Take 1 tablet every day by oral route for 30 days. 11/21 completed Not Available Not Available Not Available oseltamivir 75 mg capsule 11/06 completed Not Available Not Available Not Available sertraline 25 mg tablet TAKE 1 TABLET BY MOUTH EVERY DAY 04/07 completed Not Available Not Available Not Available hydroxyzine HCl 25 mg tablet TAKE 1 TABLET BY MOUTH TWICE DAILY NEEDED FOR ANXIETY 12/13 completed Not Available Not Available Not Available methylpredn isolone 4 mg tablets in a dose pack FOLLOW PACKAGE DIRECTION S 12/09 completed Not Available Not Available Not Available bromphenira mine-pseudo ephedrine-D M 2 mg-30 mg-10 mg/5 mL oral syrup TAKE 10 ML BY MOUTH EVERY 8 HOURS FOR 10 DAYS NEEDED FOR SINUS OR SYMPTOMS 12/20 completed Not Available Not Available Not Available ondansetron 4 mg disintegrat ing tablet 10/29 completed Not Available Not Available Not Available fluticasone propionate 50 mcg/actuati on nasal spray,suspe nsion SHAKE LIQUID AND USE 1 SPRAY IN EACH NOSTRIL EVERY DAY FOR 7 DAYS 12/09 completed Not Available Not Available Not Available sertraline 50 mg tablet TAKE 1 TABLET BY MOUTH AT BEDTIME 09/20 completed Not Available Not Available Not Available amoxicillin 875 mg-potassiu m clavulanate 125 mg tablet TAKE 1 TABLET BY MOUTH EVERY 12 HOURS FOR 7 DAYS 12/09 completed Not Available Not Available Not Available bupropion HCl SR 200 mg tablet,12 hr sustained-r elease TAKE 1 TABLET BY MOUTH TWICE DAILY 06/14 completed Not Available Not Available Not Available bupropion HCl XL 300 mg 24 hr tablet, extended release TAKE 1 TABLET BY MOUTH EVERY DAY 10/30 completed Not Available Not Available Not Available chlorhexidi ne gluconate 0.12 % mouthwash PLACE 15 ML IN THE MOUTH 2 TIMES PER DAY AFTER BRUSHING TEETH SWISH IN MOUTH FOR 30 SECONDS THEN SPIT OUT 12/09 completed Not Available Not Available Not Available Vyvanse 30 mg capsule TAKE 1 CAPSULE BY MOUTH EVERY DAY 09/20 completed Not Available Not Available Not Available Vyvanse 50 mg capsule TAKE 1 CAPSULE BY MOUTH DAILY 06/14 completed Not Available Not Available Not Available cholecalcif sanjuanita (vitamin D3) 1,250 mcg (50,000 unit) capsule TAKE 1 CAPSULE BY MOUTH WEEKLY 12/20 completed Not Available Not Available Not Available Qsymia 3.75 mg-23 mg capsule, extended release TAKE 1 CAPSULE BY MOUTH EVERY DAY FOR 14 DAYS 06/14 completed Not Available Not Available Not Available Qsymia 7.5 mg-46 mg capsule, extended release Take 1 capsule every day by oral route. 2024 active Not Available Not Available Not Avai lable Contrave 8 mg-90 mg tablet,exte nded release Starting month 1 TAB DAILY 7 Days, THEN 1 TWICE DAILY 7 Days, THEN 2 in the AM AND 1 in the PM 7 Days THEN your maintenan ce dose is 2 TWICE DAILY 05/09 completed Not Available Not Available Not Available Wegovy 0.25 mg/0.5 mL subcutaneou s pen injector Inject 0.25 mg every week by subcutane ous route for 30 days. 05/17 completed Not Available Not Available Not Available Paxlovid 300 mg (150 mg x 2)-100 mg tablets in a dose pack DIRECTED BY MOUTH 12/20 completed Not Available Not Available Not Available Mounjaro 2.5 mg/0.5 mL subcutaneou s pen injector Inject by subcutane ous route for 30 days. 04/07 completed Not Available Not Available Not Available Vitals Date Recorded Body height Body temperature Body mass index (BMI) Body weight Heart rate Systolic blood pressure Diastolic blood pressure Provider Name and Address Organization Details Last Updated DateTime 160.02 cm 97.1 [degF] 35.3 kg/m2 37327.8 8 g 92 /min 139 mm[Hg] 90 mm[Hg] Jose VanceBec raoul [place] - [facility] & [place] 15:31:41 Date Recorded Body height Body mass index (BMI) Body weight Heart rate Systolic blood pressure Diastolic blood pressure Provider Name and Address Organization Details Last Updated DateTime 160.02 cm 34.9 kg/m2 38068.9 8 g 83 /min 133 mm[Hg] 90 mm[Hg] Jose VanceBec raoul [place] - [facility] & [place] 5 15:22:09 Date Recorded Body height Body mass index (BMI) Body weight Provider Name and Address Organization Details Last Updated DateTime 11/22/2023 161.04 cm 35.3 kg/m2 38385.66 g Jose Clemons m [place] - [facility] & [place] 11/22/2023 13:45:17 Date Recorded Body temperature Heart rate Systolic blood pressure Diastolic blood pressure Provider Name and Address Organization Details Last Updated DateTime 11/22/2023 98.1 [degF] 80 /min 125 mm[Hg] 78 mm[Hg] Asmita Torrez [place] - [facility] - [place] [facility] [place] 11/22/2023 13:13:32 Date Recorded Body height Body mass index (BMI) Body weight Body temperature Oxygen saturation Oxygen saturation in Arterial blood by Pulse oximetry Heart rate Respiratory rate Systolic blood pressure Diastolic blood pressure Provider Name and Address Organization Details Last Updated DateTime 4 161.04 cm 34.9 kg/m2 91741.7 6 g 97.3 [degF] 98 % 98 % 108 /min 16 /min 123 mm[Hg] 85 mm[Hg] Antoinette Willson [facility] & [place] 4 15:22:37 Date Recorded Body height Body mass index (BMI) Body weight Body temperature Oxygen saturation Oxygen saturation in Arterial blood by Pulse oximetry Heart rate Respiratory rate Systolic blood pressure Diastolic blood pressure Provider Name and Address Organization Details Last Updated DateTime 4 161.04 cm 34.3 kg/m2 19419.1 g 97.9 [degF] 99 % 99 % 89 /min 18 /min 122 mm[Hg] 80 mm[Hg] Matty Cutler [facility] & [place] 4 15:57:10 Social History Question Answer Notes LastModified by Organizat ion Details LastModified Time Tobacco Smoking Status Never Smoker Carolynn arriaga, [facility] & [place] 10/26/2022 11:51:15 Do You Have An Advance Directive? No [email or web address] Information n ot available 10/26/2022 If You Are , What Was Your Level Of Alcohol Consumption Prior To ? None [email or web address] Information not available 12/21/2023 Do You Wear A Helmet When Biking? Yes Information not available 12/21/2023 Are You Blind Or Do You Have Difficulty Seeing? No [email or web address] Information n ot available 10/26/2022 What Is Your Level Of Caffeine Consumption? Occasional [email or web address] Information not available 12/21/2023 In The 14 Days Before Symptom Onset, Have You Had Close Contact With A Laboratory-confirm ed COVID-19 While That Case Was Ill? No [email or web address] Information n ot available 12/21/2023 In The 14 Days Before Symptom Onset, Have You Had Close Contact With A Person Who Is Under Investigation For COVID-19 While That Person Was Ill? No Information not available 12/21/2023 Have You Been To An Area Known To Be High Risk For COVID-19? No [email or web address] Information not available 12/21/2023 Are You Deaf Or Do You Have Serious Difficulty Hearing? No [email or web address] Information not available 12/21/2023 What Type Of Diet Are You Following? REGULAR [email or web address] Information n ot available 12/21/2023 Have You Processed Blood Or Body Fluids From An Ebola Virus Disease Patient Without Appropriate PPE? No [email or web address] Information not available 12/21/2023 Do You Reside In Or Have You Traveled To An Area Where Ebola Virus Transmission Is Active? No [email or web address] Information not available 12/21/2023 Have There Been Any Changes To Your Family Or Social Situation? No Information no t available 12/21/2023 What Is The Fluoride Status Of Your Home? Unknown [email or web address] Information not available 12/21/2023 Are There Any Guns Present In Your Home? No [email or web address] Information not available 12/21/2023 Have You Recently Or Are You Planning To Travel To An Area With Zika Virus? No Information not available 12/21/2023 Do You Use Insect Repellent Routinely? Yes [email or web address] Information not available 12/21/2023 Do You Feel Safe At Home? Yes [email or web address] Information not available 12/21/2023 Do You Have A Medical Power Of Master Deputy Sheriff Court Security? No [email or web address] Information not available 12/21/2023 What Was The Date Of Your Most Recent Tobacco Screening? 10/31/2023 [email or web address] Information not available 10/31/2023 Do You Have Any Pets? No [email or web address] Information not available 12/21/2023 Do You Use Your Seat Belt Or Car Seat Routinely? Yes [email or web address] Information not available 12/21/2023 Do You Have Smoke And Carbon Monoxide Detectors In Your Home? Yes [email or web address] Information not available 12/21/2023 Are You Passively Exposed To Smoke? No [email or web address] Information no t available 10/26/2022 Do You Use Sunscreen Routinely? Yes [email or web address] Information not available 12/21/2023 Has Tobacco Cessation Counseling Been Provided? No [email or web address] Information not available 02/15/2023 Do You Have Difficulty Walking Or Climbing Stairs? No [email or web address] Information not available 12/21/2023 Are You Currently In School? No [email or web address] Information not available 12/21/2023 Sex: Unknown Functional Status Question Answer Note LastModified by Organizat ion Details LastModified Time Do you use any illicit or recreational drugs? No [email or web address] Information not available 10/17/2022 Do you or have you ever used any other forms of tobacco or nicotine? No [email or web address] Information not available 02/15/2023 What is your level of alcohol consumption? None [email or web address] Information not available 10/26/2022 Are you currently employed? No [email or web address] Information not available 12/21/2023 Do you have transportation difficulties? No [email or web address] Information not available 12/21/2023 Are you able to walk? YESWOREST [email or web address] Information not available 12/21/2023 Do you have difficulty doing errands alone? No [email or web address] Information not available 12/21/2023 Are you able to care for yourself? Yes Information not available 12/21/2023 Do you have difficulty dressing or bathing? No [email or web address] Information not available 12/21/2023 What is your exercise level? Moderate [email or web address] Information not available 10/26/2022 Mental Status Question Answer Note LastModified by Organizat ion Details LastModified Time Do you feel stressed (tense, restless, nervous, or anxious, or unable to sleep at night)? [id number] [email or web address] Information not available 10/26/2022 Do you have difficulty concentrating, remembering or making decisions? No [email or web address] Information no t available 12/21/2023 Family History Relationship Description Onset Age of this Age Resolved Age Notes LastModified by Organization Details LastModified Time Mother Obesity [email or web address] Not available 04/07/2023 14:02:19 Unspecified Relation Diabetes mellitus Great grandm other [email or web address] Not available 06/14/2024 15:17:03 Father Hypertensive disorder [email or web address] Not available 2023 12:02:49 Paternal Grandfather Diabetes mellitus Great [email or web address] Not available 06/02 15:17:03 Medical History Condition Response Obesity Y Other N Headaches Y Depression Y Gynecological History Statement/Question Response Menses Monthly Y Abnormal Pap N Duration of Flow (days) 4 Current Control Method IUD Age at Menarche 37 Date of LMP 05/06/2023 Obstetrics History GPAL:G 0 P 0 0 0 0 Immunizations Vaccine Type Date Status Note Provider Nam e and Address Organization Details Recorded Time Hep B, adult 7 completed Not Available [facility] 10/17/2022 09:34:14 HPV, quadrivalent 8 completed Not Available [facility] 10/17/2022 09:34:14 Hep B, adult 7 completed Not Available [facility] 10/17/2022 09:34:14 Hep B, adult 7 completed Not Available [facility] [place] 10/17/2022 09:34:14 Novel Morvyzspy-O2T5-69 , all formulations 9 completed Not Available [facility] 10/17/2022 09:34:14 HPV, quadrivalent 7 completed Not Available [facility] [place] 10/17/2022 09:34:14 Td (adult), 2 Lf tetanus toxoid, preservative free, adsorbed 9 completed Not Available [facility] [place] 10/17/2022 09:34:14 Influenza, split virus, trivalent, preservative 7 completed Not Available [facility] [place] 10/17/2022 09:34:14 Tdap 2 completed Not Available [facility] [place] 10/17/2022 09:34:14 Influenza, split virus, trivalent, preservative 9 completed Not Available [facility] [place] 10/17/2022 09:34:14 Past Encounters Encounter ID Performer Location Encounter Start Date Encounter Closed Date Diagnosis/Indication Diagnosis SNOMED-CT Code Diagnosis ICD10 Code Diagnosis Note [id number] RADHA LOPEZ NP zzChgRHC [facility] Kristi [address] [place] [address] [place] [address] 01/12/2022 16:05:53 01/12/2022 17:00:29 Cough 71956690 R05.1 COVID-19 [id number] U07.1 symptomati c management , hydrateER if any urgent signs or symptoms arise [id number] Bettina Brady APRN [facility] [address] [facility] [place] [address] 09/20/2022 15:06:41 09/20/2022 16:05:14 Acute maxillary sinusitis [id number] J01.00 H66.91 Patient likely has an acute bacterial sinusitis. Will treat as below. No signs of preseptal or orbital cellulitis , meningismu s, or neurologic changes concerning for intracrani al process. Instructed family to monitor patient closely and call office for any of these symptoms. Supportive care reviewed: raising HOB, humidifier use, saline nasal spray, rest, encourage PO fluids and monitor hydration status, infection control measures. Recommende d acetaminop hen/ibupro fen PRN pain, fever; reviewed appropriat e doses. Follow-up as below. 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 Fatigue 65640442 R53.83 Patient with fatigue and malaise . Advised patient to eat properly, get adequate sleep and attempt to exercise. I recommend testing as per orders below to evaluate for: . Patient to follow up as directed. [id number] Bettina Brady FOUNDATION RELATIONS MANAGER [facility] [address] [place] [address] 11/01/2022 15:17:54 11/01/2022 16:49:20 Acute upper respiratory infection 97974745 J06.9 R05.1 The patient presents dry cough. The patient's condition is worsening. Based on the findings today we will begin medication therapy. Reviewed symptomati c care instructio ns, the expected course of these illnesses and explained that coughing can persist for some time. Provided precaution s for signs of worsening disease and instructio ns on contacting us if symptoms worsen. take medication s as prescribed increase water intakemoni tor for worsening symptoms Body mass index 30+ - obesity 354732985 Z68.35 educated on lifestyle modificati onsincreas e water intakemoni tor portion sizes, decrease carbs, sugars and fatty foods.incr ease exercise [id number] Bettnia Wabasso, FOUNDATION RELATIONS MANAGER [address] [place] [address] 12/09/2022 15:31:12 12/09/2022 15:55:09 Body mass index 30+ - obesity 063903638 Z68.35 E66.9 educated on lifestyle modificati onsincreas e water intakemoni tor portion sizes, decrease carbs, sugars and fatty foods.incr ease exercise [id number] Biju Mera MD [address] [place] [address] 01/19/2023 15:07:49 01/19/2023 15:59:52 Body mass index 30+ - obesity 369658608 Z68.33 patient has been on phentermin e for 12 weeks. We will give her 4 more weeks. Did discuss this would be the last prescripti on for the medication .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
== END 2024-09-25 23:59 | disposition home or self-care (01) ==
LOC: RAD 16:05
PROVIDERS: PCP Nurse Practitioner Family; Visit Provider Obstetrics & Gynecology
DX: Z30.431 Encounter for routine checking of intrauterine contraceptive device (principal); R10.2 Pelvic and perineal pain
CPT/HCPCS: 76830

== ENCOUNTER 2024-11-01 15:15 | Outpatient (CLI) | payer MEDICAID, SELFPAY ==
--- OUTSIDE RECORDS SUMMARY | 2024-11-01 15:18 | XMS_ITS | Clinical Summary ---
Author Organization [facility] Address [address] [place] [address] Care Team Providers Care Quantitative Analyst Developer Name Role Phone Louann Evans MD Primary Care Provider [phone] Allergies No known active allergies Medications amphetamine-dex troamphetamine XR (ADDERALL XR) 30 MG 24 hr capsule 03/23/2019 Active buPROPion XL (WELLBUTRIN XL) 150 MG 24 hr tablet 03/27/2019 Active azithromycin (ZITHROMAX Z-MIKE) 250 MG tablet Take 2 tablets the first day, then 1 tablet daily for 4 days. 6 tablet 04/10/2019 Active Family History Medical History Relation Name Comments Lung cancer Maternal Grandfather Relation Name Status Comments Maternal Grandfather smoker Social History Tobacco Use Types Packs/Day Years Used Date Smoking Tobacco: Never Abuse Screen Answer Date Recorded Unsafe at Home or Work/School Not on file Feels Threatened by Someone? Not on file 03/2023 Does Anyone Keep You from Co ntacting Others or Doint Things Outside the Home? Not on file 01/13/2023 Physical Sign of Abuse Present Not on file 1 Housing Stability Answer Date Recorded Current Living Arrangements Not on file 01/02 Potentially Unsafe Housing Conditions Not on lily e 01/13/2023 Family and Community Support Answer Az e Recorded Help with Day-to-Day Activities Not on file 01/13/2023 Lonely or Isolated Not on file 01/13/2023 Employment Answer Date Recorded Do you want help finding or keeping work or a silvia b? Not on file 01/13/2023 Disabilities Answer Date Recorded Concentrating, Remembering, or Making Decisions Difficulty Not on file 01/13/2023 Doing Errands Independently Difficulty Not on fi le 01/13/2023 Education Answer Date Recorded Help with school or training? Not on file Preferred Language Not on file 01/13/2023 Comments No Sex and Gender Information Value Date Recorded Sex Assigned at Not on file Legal Sex Female 8:41 AM EST Gender Identity Not on file Sexual Orientation Not on file Last Filed Vital Signs Vital Sign Reading Time Taken Comments Blood Pressure 110/80 04/10/2019 9:07 AM EST Pulse 101 04/10/2019 9:07 AM EST Temperature 36.8 C (98.3 F) 04/10/2019 9:07 AM EST Respiratory Rate 16 04/10/2019 9:07 AM EST Oxygen Saturation 98% 04/10/2019 9:07 AM EST Inhaled Oxygen Concentration - - Weight 80.3 kg (177 lb) 04/10/2019 9:07 AM EST Height 162.6 cm (5' 4 ) 04/10/2019 9:07 AM EST Body Mass Index 30.38 04/10/2019 9:07 AM EST Plan of Treatment Health Maintenance Due Date Last Done Comments Annual Gynecologic Pelvic an d Breast Exam 1983 TDAP/TD VACCINES (2 - Tdap) 07/17/2008 07/17/1998 ANNUAL PHYSICAL 04/10/2019 HEPATITIS C SCREENING 04/10/2019 MAMMOGRAM 2023 COVID-19 Vaccine (2023-2 5 season) 2023 INFLUENZA VACCINE 01/02/2025 Pneumococcal Vaccine 0-49 Aged Out No longer eligible based on patient's age to complete this topic Insurance [facility] MEDICAID Care Teams Quantitative Analyst Developer Relationship Specialty Start Date End Date Louann Evans MD [address] [place] [address] [place] [address] PCP - General Family Medicine 04/10/19
--- OUTSIDE RECORDS SUMMARY | 2024-11-01 15:18 | XMS_ITS | Clinical Summary ---
Author Organization Healthcare Address [address] [place] [address] Care Team Providers Care Roofing Contractor Name Role Phone Kitty Miner APRN Primary [...] adult 02/21/2007,09/13/2006,08/12/2006 Influenza, seasonal, injectable 12/02/2008,02/21 Novel Suwvjosun-[id number], all formulations 2008 TD (adult), 2 Lf [...] 10/10/2013 [facility]-HPV/Cotest 10/10/2013 [facility]-Depression Screening 12/24/2022 12/24/2021 [id number]-UBVQT-43 Vaccine ( season) 2023 [facility]-Influenza Vaccine (#1) 12/03/202402/13, 12/02/2008, 02/21/2007 [facility]-DTaP,Tdap,and Td Vaccine s (3 [...] this topic Medical Devices Implanted Type Area Battery Starter Device Identifier Shelf Expiration Date Model / Serial / Lot Wire K Trocar 2.5mm X 292.25 - S. - [id number] Implanted:Qty: 1 on 06/25/2021 by Erich Llanos MD at [facility] Pin Synthes [facility]-[id number] 06/25/2022 292.25 / . / Plate 1/3 Tubular Col 61mm 5h - S. - [id number] Implanted:Qty: 1 on 06/24/2021 at [facility] Plate Right: Ankle Synthes [facility]-[id number] 06/24/2022 241.35 / . / Plate Prox Hum 3.5mm 114mm 5h - S. - [id number] Implanted:Qty: 1 on 06/25/2021 by Erich Llanos MD at [facility] Plate Synthes [facility]-[id number] 06/25/2022 241.903 / . / Screw 3.5mm Cortex Pelvic Selftap 100mm - S. - [id number] Implanted:Qty: 1 on 06/24/2021 at [facility] Screw Right: Ankle [employer] [place]-[id number] 06/24/2022 204.700 / . / Screw 3.5mm Cortex Selftap 30mm - S. - [id number] Implanted:Qty: 1 on 06/24/2021 at [facility] Screw Right: [employer] [place]-[id number] 06/24/2022 204.830 / . / Screw 3.5mm Cortex Selftap 28mm - S. - [id number] Implanted:Qty: 1 on 06/24/2021 at [facility] Screw Right: [employer] [place]-[id number] 06/24/2022 204.828 / . / Screw 3.5mm Cortex Selftap 32mm - S. - [id number] Implanted:Qty: 1 on 06/24/2021 at [facility] Screw Right: [employer] [place]-[id number] 06/24/2022 204.832 / . / Screw 3.5mm Cortex Low Profile Selftap 42mm - S. - [id number] Implanted:Qty: 1 on 06/24/2021 at [facility] Screw Right: Ank[employer] [place]-[id number] 06/24/2022 02.206.042 / . / Screw 3.5mm Cortex Selftap 45mm - S. - [id number] Implanted:Qty: 1 on 06/24/2021 at [facility] Screw Right: [employer] [place]-[id number] 06/24/2022 204.845 / . / Screw 3.5mm Star Lock Selftap 36mm - S. - [id number] Implanted:Qty: 2 on 06/25/2021 by Erich Llanos MD at [facility] Screw [employer] [place]-[id number] 06/25/2022 212.115 / . / Screw 3.5mm Star Lock Selftap 38mm - S. - [id number] Implanted:Qty: 2 on 06/25/2021 by Erich Llanos MD at [facility] Screw [employer] [place]-[id number] 06/25/2022 212.116 / . / Screw 2.4mm Cortex 3.5mm Self Tap 36mm - S. - [id number] Implanted:Qty: 1 on 06/25/2021 by Erich Llanos MD at [facility] Screw [employer] [place]-[id number] 06/25/2022 201.688 / . / Screw 3.5mm Cortex Selftap 36mm - S. - [id number] Implanted:Qty: 1 on 06/25/2021 by Erich Llanos MD at [facility] Scre[employer] [place]-[id number] 06/25/2022 204.836 / . / Screw 3.5mm Cortex Selftap 26mm - S. - [id number] Implanted:Qty: 1 on 06/25/2021 by Erich Llanos MD at [facility] Screw [employer] [place]-[id number] 06/25/2022 204.826 / . / Screw 3.5mm Cortex Selftap 28mm - S. - [id number] Implanted:Qty: 1 on 06/25/2021 by Erich Llanos MD at [facility] Screw [employer] [place]-[id number] 06/25/2022 204.828 / . / Screw 3.5mm Star Lock Selftap 44mm - S. - [id number] Implanted:Qty: 1 on 06/25/2021 by Erich Llanos MD at [facility] Screw [employer] [place]-[id number] 06/25/2022 212.134 / . / Screw 3.5mm Star Lock Selftap 40mm - S. - [id number] Implanted:Qty: 1 on 06/25/2021 by Erich Llanos MD at [facility] Screw [employer] [place]-[id number] 06/25/2022 212.117 / . / Screw 3.5mm Cortex Selftap 22mm - S. - [id number] Implanted:Qty: 1 on 06/25/2021 by Erich Llanos MD at [facility] Screw [employer] [place]-[id number] 06/25/2022 204.822 / . / Screw 2.4mm Cortex 3.5mm Self Tap 46mm - [id number] Implanted:Qty: 1 on 06/25/2021 by Erich Llanos MD at [facility] Screw [employer]ynthe[employer] [place]-[id number] 06/25/2022 201.693 / / K-Wire Single Trocar Point 1mm X 110mm - [id number] Implanted:Qty: 4 on 06/19/2021 by Maik Jesus MD at [facility] Wire Left: Leg [employer] ([facility])-1391 68 451-0016 / / Pin 6m969am Blunt - [id number] Implanted:Qty: 2 on 06/16/2021 by Maik Jesus MD at [facility] Left: Femur [employer] [facility]1391 68 06/16/2022 5020-3-150 / / Pin [id number] Blunt - [id number] Implanted:Qty: 2 on 06/16/2021 by Maik Jesus MD at [facility] Left: Femur [employer] [facility]1391 68 06/16/2022 5020-7-200 / / Clamp Pin 10 Hole - [id number] Implanted:Qty: 2 on 06/16/2021 by Maik Jesus MD at [facility] Left: Femur [employer] [facility]1391 68 06/16/2022 4921-2-060 / / Post Angled 30 Deg 8mm - [id number] Implanted:Qty: 4 on 06/16/2021 by Maik Jesus MD at [facility] Left: Femur [employer] ([facility]1391 68 06/16/2022 4922-2-140 / / Coupling Daniel To Daniel 8/8mm - [id number] Implanted:Qty: 3 on 06/16/2021 by Maik Jesus MD at [facility] Left: Femur [employer] ([facility])-1391 68 06/16/2022 4922-1-010 / / Clip Easy Bicortical Fixation [id number] - [id number] Implanted:Qty: 2 on 06/16/2021 by Maik Jesus MD at [facility] Left: Femur [employer] ([facility])-1391 68 06/16/2022 4922-8-500 / / Screw Locking T2 D5xl80 - [id number] Implanted:Qty: 1 on 06/19/2021 by Maik Jesus MD at [facility] Left: Leg [employer] ([facility])-1391 68 02/01/2031 2360-5080S / / [id number] Screw Locking T2 D5xl85 - [id number] Implanted:Qty: 1 on 06/19/2021 by Maik Jesus MD at [facility] Left: Leg [employer] ([facility])-1391 68 12/02/2030 2360-5085S / / [id number] Screw Locking T2 D5xl80 - [id number] Implanted:Qty: 1 on 06/19/2021 by Maik Jesus MD at [facility] Left: Leg [employer] ([facility])-1391 68 01/01/2031 2360-5080S / / [id number] Screw Locking Adv T2 T2 D5xl60 - [id number] Implanted:Qty: 1 on 06/19/2021 by Maik Jesus MD at [facility] Left: Leg [employer] ([facility])-1391 68 03/03/2031 2361-5060S / / [id number] Screw Locking T2 D5xl75 - [id number] Implanted:Qty: 1 on 06/19/2021 by Maik Jesus MD at [facility] Left: Leg [employer] [facility]1391 68 02/01/2031 2360-5075S / / [id number] Screw Locking T2 D5x32.5 - [id number] Implanted:Qty: 1 on 06/19/2021 by Maik Jesus MD at [facility] Left: Leg [employer] ([facility])-1391 68 02/01/2031 2360-5032S / / Screw Locking T2 D5x35 - [id number] Implanted:Qty: 1 on 06/19/2021 by Maik Jesus MD at [facility] Left: Leg [employer] ([facility])-1391 68 03/03/2031 2360-5035S / / Screw Locking T2 D5xl75 - [id number] Implanted:Qty: 1 on 06/19/2021 by Maik Jesus MD at [facility] Left: Leg [employer] ([facility])-1391 68 01/01/2031 2360-5075S / / Screw [employer]el [employer] 3.0mm X 22mm - [id number] Implanted:Qty: 1 on 06/19/2021 by Maik Jesus MD at [facility] Left: Leg [employer] ([facility])-1391 68 05/28/2024 141-3022 / / Screw 3.5mm Bone T10 Full Thread L65mm - [id number] Implanted:Qty: 1 on 06/19/2021 by Maik Jesus MD at [facility] Left: Leg [employer] ([facility])-1391 68 05/28/2024 117768 / / Nail Femoral Retro T2 Alpha 10mm X 360mm - [id number] Implanted:Qty: 1 on 06/19/2021 by Maik Jesus MD at [facility] Left: Leg [employer] ([facility])-1391 68 02/01/2031 2339-1036S / / [id number] Chip Bone 10cc - [id number] - [id number] Implanted:Qty: 1 on 06/24/2021 by Erich Llanos MD at [facility] Right: [facility]-[id number] 02/16/2026 PCAN10 / [id number] / [id number] Explanted Type Area Battery Starter Device Identifier Shelf Expiration Date Model / Serial / Lot Screw 3.5mm Cortex Selftap 38mm - S. - [id number] Explanted:Qty: 1 on 06/24/2021 at [facility] Screw Right: [employer] [place]-[id number] 06/24/2022 204.838 / . / Screw 3.5mm Cortex Selftap 26mm - S. - [id number] Explanted:Qty: 1 on 06/24/2021 at [facility] Screw Right: [employer] [place]-[id number] 06/24/2022 204.826 / . / Screw 3.5mm Cortex Selftap 36mm - S. - [id number] Explanted:Qty: 1 on 06/24/2021 at [facility] Screw Right: [employer] [place]-[id number] 06/24/2022 204.836 / . / Procedures Procedure Name Priority Date/Time Associated Diagnosis Comments HEPATITIS C ANTIBODY W/REFLEX TO HCV QUANT PCR Routine 02/16/2017 1:08 PM EST from Last 3 Months or Most Recently Relevant to Health Maintenance Results * Hepatitis C Antibody (02/16/2017 1:08 PM EST) Hepatitis C Antibody NEGATIVE Reference Range: Negative SUNQUEST 02/16/2017 1:08 PM EST 02/16/2017 4:36 PM EST Historical Provider LAB BLOOD ORDERABLES Lu l Result SUNQUEST from Last 3 Months or Most Recently Relevant to Health Maintenance Insurance [facility] MEDICAID [facility] MEDICAID [facility] Advance Directives * Full Code (Latest Code Status on File) Date Activated Date Inactivated Comments 06/19/2021 12:14 PM 06/27/2021 10:19 PM Question Answer Comments Patient has decision-making capacity? Yes * Full Code Date Activated Date Inactivated Comments 06/16/2021 11:21 AM 06/19/2021 12:14 PM Question Answer Comments Patient has decision-making capacity? Yes Care Teams Roofing Contractor Relationship Specialty Start Date End Date Kitty Miner APRN [address] [id number] PCP - General 07/09/21
--- NOTE | 2024-11-01 15:30 | MM_ITS ---
PROCEDURE INFORMATION: Exam: MG Bilateral Screening 3D Mammography Exam date and time: 11/01/2024 3:29 PM Age: 39 years old Clinical indication: Screening examination. TECHNIQUE: Imaging protocol: Bilateral Screening tomosynthesis and 2D mammography including computer-aided detection (CAD) when performed. COMPARISON: 1. MG MM DIG MAMM DX UNILAT LT CAD 01/01/2019 1:18 PM 2. MG DXLT MM Dig mamm DX unilat LT CAD 04/05/2018 1:49 PM FINDINGS: MAMMOGRAPHY: Breast composition: There are scattered areas of fibroglandular density. Mass: None. Architectural distortion: None. Calcifications: No suspicious calcifications. Asymmetric density: None. Skin thickening: None. Axillary adenopathy: None. IMPRESSION: No mammographic evidence of malignancy. Annual screening is recommended unless otherwise clinically indicated. ASSESSMENT: BI-RADS Category 1: Negative.
== END 2024-11-01 23:59 | disposition home or self-care (01) ==
LOC: RAD 15:16
PROVIDERS: PCP Nurse Practitioner Family; Visit Provider Obstetrics & Gynecology
DX: Z12.31 Encounter for screening mammogram for malignant neoplasm of breast (principal); R92.323 Mammographic fibroglandular density, bilateral breasts
CPT/HCPCS: 77063; 77067